=== PATIENT | female | born 1965 | race Caucasian/White ===

== ENCOUNTER 2021-03-27 13:31 | Outpatient (CLI) | payer MEDICAID ==
[~2021-03-27] VITALS: Ht 160 cm; Wt 109.3 kg
[2021-03-27 14:17] LABS: Basophils # (auto) 0 10 ^3/uL (0-0.2); Basophils % (auto) 0.4 % (0.0-2.0); Eosinophils # (auto) 0.2 10 ^3/uL (0-0.8); Eosinophils % (auto) 2.5 % (0.0-7.0); Hematocrit 42.6 % (36.0-46.0); Hemoglobin 14.6 g/dL (12.2-16.2); Lymphocytes # (auto) 1.8 10 ^3/uL (0.4-5.4); Lymphocytes % (auto) 19.6 % (10.0-50.0); Mean Corpuscular Hemoglobin 32.9 pg (28.0-32.0); Mean Corpuscular Hgb Conc. 34.3 g/dL (32.0-36.0); Mean Corpuscular Volume 96.2 fL (80.0-100.0); Monocytes # (auto) 0.6 10 ^3/uL (0-1.3); Monocytes % (auto) 6.2 % (0.0-12.0); Neutrophils # (auto) 6.5 10 ^3/uL (1.6-8.6); Neutrophils % (auto) 71.3 % (37.0-80.0); Red Blood Cells 4.44 10^6/uL (4.0-5.20); Red Cell Distribution Width 13.2 % (11.8-14.3); White Blood Cell 9.1 10^3/uL (4.4-10.8)
[2021-03-27 14:48] LABS: Albumin 4.3 g/dL (3.4-5.0); BUN/Creatinine Ratio 18.5; Bilirubin, Total 0.4 mg/dL (0.2-1.0); Calcium 9.2 mg/dL (8.5-10.1); Potassium 4.1 mmol/L (3.5-5.1); Total Protein 7.5 g/dL (6.4-8.2)
[2021-03-27 15:42] LABS: Urine Bacteria NONE SEEN /hpf (None Seen); Urine Blood Negative /uL (Negative); Urine Specific Gravity 1.005 (1.001-1.035); Urine WBC <1 /hpf (0 - 5)
[2021-03-27] MEDS ORDERED: BACL20TA PO (16:37)
[2021-03-27] MEDS ORDERED: FLUT1SPR5 (16:37)
[2021-03-27] MEDS ORDERED: PROM25TA5 PO (16:37)
[2021-03-27] MEDS ORDERED: FURO1TAB31 PO (16:37)
[2021-03-27] MEDS ORDERED: ALB5IS NEB (16:37)
[2021-03-27] MEDS ORDERED: HYDR2TAB58 PO (16:37)
[2021-03-27] MEDS ORDERED: AMLO-496 PO (16:37)
[2021-03-27] MEDS ORDERED: BENA40TA83 PO (16:37)
[2021-03-27] MEDS ORDERED: BUPR150T8 PO (16:37)
[2021-03-27] MEDS ORDERED: TRAZ300T13 PO (16:37)
[2021-03-27] MEDS ORDERED: BELI200I SC (16:37)
[2021-03-27] MEDS ORDERED: HYDR-4188 PO (16:37)
[2021-03-27] MEDS ORDERED: GABA600T PO (16:37)
[2021-03-27] MEDS ORDERED: FLU220IH IN (16:37)
[2021-03-27] MEDS ORDERED: MORP-110 PO (16:37)
[2021-03-27] MEDS ORDERED: NALO1TAB4 PO (16:37)
[2021-03-27] MEDS ORDERED: PANT40TA2 PO (16:38)
[2021-03-27] MEDS ORDERED: FOLITAB22 PO (16:38)
[2021-03-27] MEDS ORDERED: CETI10CA5 PO (16:38)
[2021-03-27] MEDS ORDERED: MELO-61 PO (16:38)
== END 2021-03-27 14:02 | disposition home or self-care (01) ==
LOC: LAB 13:31 → EDSTATUS 03-30 12:23
PROVIDERS: ATTEND Specialist
DX: Z01.812 Encounter for preprocedural laboratory examination (principal); Z20.822 Contact with and (suspected) exposure to COVID-19; A63.0 Anogenital (venereal) warts
CPT/HCPCS: 36415; 80053; 81001; 85025; 86850; 86900; 86901; U0003